=== PATIENT | male | born 1990 | race Caucasian/White ===

== ENCOUNTER 2024-07-09 09:35 | Emergency (ER) | payer OTHER, SELFPAY ==
[2024-07-09] VITALS (17 sets, daily range): BP systolic 122–152; BP diastolic 55–84; PULSE 52–70; RESP 12–22; TEMP 36.4–36.5; O2SAT 97–100; BMI 32.1
--- NOTE | 2024-07-09 09:49 | ED.GENADULT ---
HPI - General Adult General Chief complaint: Trauma Stated complaint: Fell off ladder Left wrist pain / arm pain Time Seen by Provider: 07/09/24 09:48 Source: patient, RN notes reviewed and old records reviewed Mode of arrival: Ambulatory Limitations: no limitations History of Present Illness HPI narrative: 34-year-old male with no reported medical issues who presents with fall with from a ladder. Patient had his hips at about a 1 story level, had a ladder that he states was on slight at the base of was little bit wet and he did not realize how slippery was not slipped out from underneath him and he fell down onto his feet and falling onto his left side. Patient states his feet landed on slight but he fell sideways has had sort of landed soft dirt/flower bed. His main complaint is pain in his lower back. As well as his left wrist. Patient states no loss of consciousness, denies feeling standard dizzy. Denies headache denies neck pain, states while she was low back pain is worse with movement. States he was able to stand and has been able to ambulate. Has a little bit of pain in his left hip but states he is able to ambulate on it. Also notes a little bit of calf pain. Denies seal pain or foot pain. Denies any chest pain or shortness of breath. States he did get the wind knocked out of him. Denies any abdominal or flank pain. Had some nausea initially but none persistently. No vomiting. No loss of bowel or bladder control no other GI or urinary symptoms. Patient states he called for help and was assisted. Was driven here by private auto. States no daily medications, denies prior surgeries. No known drug allergies. No regular tobacco, occasional alcohol states none today, no recreational drugs other than marijuana. Noted that is pulses bradycardic he states that that is his baseline. He states he did drink a bottle of water and take some Aleve on the way over here. He defers anything for pain currently. Related Data Previous Rx's Medication Instructions Recorded tramadol 50 mg tablet 50 mg PO Q6H PRN pain #14 tabs 07/09/24 Allergies Allergy/AdvReac Type Severity Reaction Status Date / Time No Known Drug Allergies Allergy Verified 07/09/24 09:46 Review of Systems Review of Systems ROS Unobtainable: All systems reviewed & are unremarkable except as noted in HPI and below Patient History Social History Smoking Status: Unknown if ever smoked Exam Narrative Exam Narrative: GEN: C-collar in ED. Patient appears in mild distress. HEAD: No evidence of trauma, no raccoon/Hinojosa sign. Patient does have dirt left side face but is not imbedded, no erythema rash or ecchymosis. NECK: Nontender, painless range of motion, trachea midline Negative Nexus criteria, midline line tenderness, distracting injury, altered mental status, neuro deficit, recent EtOH. EYES: PERRLA, EOMI ENT: External inspection normal, trachea is midline, TM's are normal no hemotypanum, Nares are clear, no septal hematoma, no dental or oral injury, airway is normal and with normal occlusion, No bony tenderness RESP: Chest is nontender and has symmetric movement, no ecchymosis, breath sounds are normal no crackles, wheezes or rales CVS: Patient was bradycardic but heart sounds are normal, no murmur noted, No JVD. ABG/GI: Nontender, soft, normal bowel sounds, no distention, no organomegaly, pelvic rock is negative NEURO: Oriented AOx3, neuro is grossly intact, sensation and motor is normal all 4 extremities moving, cranial nerves II through XII are intact, GCS is 15 PSYCH: Normal mood and affect SKIN: Intact, warm and dry, no crepitus and without decubitus BACK: No CVA tenderness, no vertebral tenderness except for some mild tenderness over L3-4 5 region, no step-off's, no crepitus EXT: Left wrist is tender, patient has slightly decreased range of motion, no obvious ecchymosis swelling or deformity, patient has some tenderness over the left hip but has good range of motion without any other pain. Right hip is nontender, mild tenderness of the left calf, no obvious deformity, no bony tenderness. No tenderness of the feet, heels or toes. No pedal edema, normal color and temperature, normal range of motion of extremities with normal tendon exam, 2+ pulses in all four extremities Initial Vital Signs Initial Vital Signs: Vital Signs Temperature 97.7 F 07/09/24 09:36 Pulse Rate 58 L 07/09/24 09:36 Respiratory Rate 17 07/09/24 09:36 Blood Pressure 133/84 07/09/24 09:36 Pulse Oximetry 97 07/09/24 09:36 Oxygen Delivery Method Room Air 07/09/24 09:36 Course Orders Ordered: ED Orders 07/09/24 09:59 CT cervical spine wo con Stat CT head/brain wo con Stat CT lumbar spine wo con Stat XR chest 1V Stat XR pelvis 1-2V Stat EKG-12 Lead Stat 07/09/24 10:01 XR tibia fibula LT 2V Stat 07/09/24 10:04 Complete Blood Count AUTO DIFF Stat Comprehensive Metabolic Panel Stat Ethanol (ETOH) Stat Lactate (Lactic Acid) Stat Lipase Stat PTT Partial Thromboplastin Kit Stat Prothrombin Time INR Stat 07/09/24 10:55 Type and Screen Stat 07/09/24 11:44 XR wrist LT min 3V Stat Discontinued Medications Sodium Chloride (Normal Saline 0.9%) 1,000 mls @ 1,000 mls/hr IV BOLUS ONE Stop: 07/09/24 11:53 Last Infusion: 07/09/24 12:27 Dose: Infused Documented By: Admin: 07/09/24 11:03 Dose: 1,000 mls/hr Documented By: SADAF Vital Signs Vital signs: Vital Signs - 8 hr 07/09/24 09:36 07/09/24 09:41 07/09/24 09:41 Temperature 97.7 F Temperature [0936] Pulse Rate 58 L 59 L Pulse Rate [0936] Respiratory Rate 17 Respiratory Rate [0936] Blood Pressure 133/84 133/84 Blood Pressure [0936] Pulse Oximetry 97 98 Pulse Oximetry [0936] Oxygen Delivery Method Room Air Oxygen Delivery Method [935] 07/09/24 09:45 07/09/24 09:45 07/09/24 09:59 Temperature Temperature [0936] 97.6 F Pulse Rate 52 L Pulse Rate [0936] 58 L Respiratory Rate Respiratory Rate [0936] 17 Blood Pressure 122/71 Blood Pressure [0936] 133/84 Pulse Oximetry 97 Pulse Oximetry [0936] 97 Oxygen Delivery Method Oxygen Delivery Method [0936] Room Air 07/09/24 10:00 07/09/24 10:00 07/09/24 10:01 Temperature Temperature [0936] Pulse Rate 52 L 54 L Pulse Rate [0936] Respiratory Rate Respiratory Rate [0936] Blood Pressure 137/76 Blood Pressure [0936] Pulse Oximetry 98 97 Pulse Oximetry [0936] Oxygen Delivery Method Oxygen Delivery Method [0936] 07/09/24 10:01 07/09/24 10:31 07/09/24 10:33 Temperature Temperature [0936] Pulse Rate 60 Pulse Rate [0936] Respiratory Rate Respiratory Rate [0936] Blood Pressure 147/77 H 128/58 L Blood Pressure [0936] Pulse Oximetry 100 Pulse Oximetry [0936] Oxygen Delivery Method Oxygen Delivery Method [0936] 07/09/24 10:33 07/09/24 10:45 07/09/24 10:45 Temperature Temperature [0936] Pulse Rate 58 L 60 Pulse Rate [0936] Respiratory Rate 14 13 Respiratory Rate [0936] Blood Pressure 129/73 Blood Pressure [0936] Pulse Oximetry 99 100 Pulse Oximetry [0936] Oxygen Delivery Method Oxygen Delivery Method [0936] 07/09/24 11:00 07/09/24 11:00 07/09/24 11:15 Temperature Temperature [0936] Pulse Rate 62 Pulse Rate [0936] Respiratory Rate 14 Respiratory Rate [0936] Blood Pressure 133/80 136/79 Blood Pressure [0936] Pulse Oximetry 100 Pulse Oximetry [0936] Oxygen Delivery Method Oxygen Delivery Method [0936] 07/09/24 11:15 07/09/24 11:30 07/09/24 11:30 Temperature Temperature [0936] Pulse Rate 60 65 Pulse Rate [0936] Respiratory Rate 16 20 Respiratory Rate [0936] Blood Pressure 136/65 Blood Pressure [0936] Pulse Oximetry 100 100 Pulse Oximetry [0936] Oxygen Delivery Method Oxygen Delivery Method [0936] 07/09/24 11:46 07/09/24 11:46 07/09/24 12:00 Temperature Temperature [0936] Pulse Rate 66 69 Pulse Rate [0936] Respiratory Rate 21 19 Respiratory Rate [0936] Blood Pressure 152/80 H Blood Pressure [0936] Pulse Oximetry 100 99 Pulse Oximetry [0936] Oxygen Delivery Method Oxygen Delivery Method [0936] 07/09/24 12:01 07/09/24 12:01 07/09/24 12:15 Temperature Temperature [0936] Pulse Rate 70 Pulse Rate [0936] Respiratory Rate 12 Respiratory Rate [0936] Blood Pressure 140/74 146/66 H Blood Pressure [0936] Pulse Oximetry 99 Pulse Oximetry [0936] Oxygen Delivery Method Oxygen Delivery Method [0936] 07/09/24 12:15 07/09/24 12:30 07/09/24 12:30 Temperature Temperature [0936] Pulse Rate 69 65 Pulse Rate [0936] Respiratory Rate 22 12 Respiratory Rate [0936] Blood Pressure 133/55 L Blood Pressure [0936] Pulse Oximetry 100 100 Pulse Oximetry [0936] Oxygen Delivery Method Room Air Oxygen Delivery Method [0936] Medical Decision Making Lab Data 07/09/24 10:04 07/09/24 10:04 Labs: Lab Results 07/09/24 07/09/24 07/09/24 Range/Units 10:04 10:55 12:06 WBC 8.8 (4.5-11.0) X10^3/uL RBC 4.65 (4.5-5.9) X10^6/uL Hgb 13.6 (13.5-17.5) g/dL Hct 39.7 L (41-53) % MCV 85.4 (80-100) fL MCH 29.2 (26-34) PG MCHC 34.2 (30-36) % RDW 13.6 (11.6-14.8) % Plt Count 321 (150-400) X10^3/uL Neut % (Auto) 44.8 L (50-75) % Lymph % (Auto) 46.4 H (25-40) % Crane % (Auto) 7.5 (3-14) % Eos % (Auto) 1.1 L (2-4) % Baso % (Auto) 0.2 (0-2) % Neut # (Auto) 3900 (0935-3608) /uL Lymph # (Auto) 4100 (2912-6751) /uL Crane # (Auto) 700 (0-900) /uL Eos # (Auto) 100 (0-450) /uL Baso # (Auto) 0 (0-100) /uL PT 12.6 H (9.4-12.5) SECONDS INR 1.1 (0.9-1.3) APTT 32 (25.1-36.5) SECONDS Sodium 135 L (137-145) mmol/L Potassium 4.4 (3.4-5.1) mmol/L Chloride 102 (98-107) mmol/L Carbon Dioxide 24 (22-32) mmol/L BUN 20 (9-20) mg/dL Creatinine 0.86 (0.66-1.25) mg/dL Estimated GFR > 60 (>60) mL/min BUN/Creatinine Ratio 23.3 H (6-22) Glucose 152 H (70-100) mg/dL Lactate 2.5 H 2.8 H (0.7-2.1) mmol/L Calcium 9.0 (8.4-10.2) mg/dL Total Bilirubin 0.8 (0.2-1.3) mg/dL AST 57 (17-59) IU/L ALT 38 (<50) IU/L Alkaline Phosphatase 94 (38-126) U/L Total Protein 7.9 (6.3-8.2) g/dL Albumin 4.5 (3.5-5.0) g/dL Globulin 3.4 (1.7-4.1) g/dL Albumin/Globulin Ratio 1.3 (1.0-2.8) Lipase 77 (23-300) U/L Ethyl Alcohol < 10 ( - 10) mg/dL Blood Type O Negative Antibody Screen Negative ECG Data Attestation: I personally reviewed and interpreted this ECG as follows: Prior ECG tracings: not available for review Interpretation: Sinus bradycardia with sinus arrhythmia rate of 57 MD 162 QRS of 100 QTC 377, no ST changes. No priors available. MDM Narrative Medical decision making narrative: 34-year-old male fell from height of his hips being about 1 story when a ladder slid out fell onto his feet and then off to his left side. No heel pain has a little bit of tib-fib pain but has been able to ambulate. Notes lower lumbar pain and left wrist pain is main complaints. He is bradycardic but states that is his baseline. Vitals are otherwise appropriate no hypotension. No hypoxia. Labs white count 8.8 hemoglobin of 13.6 platelets of 321, predominance of lymphocytes. Coags are negative, lactate 2.5. CMP shows sodium 135 potassium 4.4 chloride of 102, CO2 of 24 BUN 20 creatinine 0.86, lactate 2.5 glucose is 152, LFTs are negative. Lipase is 77. ETOH is negative EKG shows sinus bradycardia. Head CT negative for acute change C-spine CT no acute fracture or traumatic subluxation. Lumbar CT acute mild superior endplate compression fracture T12 without bony retropulsion or canal stenosis no other acute bony abnormalities congenitally short L5 pedicles incidentally noted multilevel mild disc bulges without canal stenosis. Chest x-ray low lung volumes, no acute change. Pelvis no acute radiographic change. Tib-fib no acute fracture. Left wrist fracture comminuted fracture distal radial metaphysis pad this is the intra-articular extension fracture lines mild dorsal angulation and fracture fragments on lateral image. Moderate diffuse circumferential soft tissue swelling. CT maybe useful for further evaluation. Patient has T12 compression fracture. No other acute fractures or changes lactate was slightly elevated, did elevate slightly but completing fluids still. No changes in vitals patient otherwise feels well. Vitals have over been appropriate. Patient does have left wrist fracture as well as a T12 compression fracture. This is over the area of discomfort. Patient has no other acute neurologic changes felt appropriate for discharge home given referral for Orthopedic surgery. [address] Mckeon, orthopedic surgery: spoke with Dr. Mckeon 1331: Plan for follow up in the office. T12 compression fracture but no retropulsion or neurologic changes. Reviewed specific findings from imaging including wrist x-ray. Patient placed in volar splint neurovascularly intact and to follow up with the office. Agrees with plan. Discharge Plan Departure Patient Disposition: Home Clinical Impression: Compression fracture of T12 vertebra, Fracture of left wrist Instructions: Vertebral Compression Fracture, DI for Wrist Fracture Activity Restrictions/Additional Instructions: You have a small compression fracture at T12 in your lower back. These are typically treated with conservative management but if persisting or worsening you can follow up with Orthopedic surgery, contact is included below. Your imaging also shows some area of the will likely bulge of the discs in your back. You also fracture of your left wrist you do need to follow up with Orthopedic surgery for this. Contacts included below. Please call today or tomorrow to set up follow up in the next week. Splint Care: Keep splint clean and dry. Elevated affected body part to decrease swelling. OK to use ice pack on the affected body part. Use for 15-20 minutes each time, for 5-6x per day. If you develop worsening pain, numbness, tingling, discoloration of the affected body part, loosen the splint by loosening the JACK wrap, and either see your doctor for an urgent re-assessment, or return to the Emergency Department. Return to the Emergency Department for any new or worsening symptoms. You can take Tylenol up to a 1000 mg every 6 hours and/or ibuprofen up to 600 mg every 6 hours as needed for pain. You take tramadol 1-2 tablets every 6 hours as needed for pain. This medication can make you sleepy do not drive, perform hazardous activities or make any major decisions while taking it. This medication will make you constipated please take a stool softener once to twice daily until stools are soft and regular. Prescription sent to [facility]. Please return for severe headaches, rapidly worsening back pain, new chest pain or shortness of breath, persistent vomiting, loss of bowel or bladder control new weakness numbness or loss of sensation in your extremities or other new or concerning changes. Prescriptions: New tramadol 50 mg tablet 50 mg PO Q6H PRN (Reason: pain) Qty: 14 0RF Referrals: Isidro Mckeon MD [Physician] - Stand Alone Forms: Patient Portal/API, Work Release Note
--- NOTE | 2024-07-09 09:59 | EKG_ITS ---
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
--- NOTE | 2024-07-09 09:59 | DI.RAD.S_ITS ---
PROCEDURE: XR CHEST 1V INDICATIONS: fall from 1 story, pain low back, L wrist. TECHNIQUE: One view of the chest was acquired. COMPARISON: None. FINDINGS: Surgical changes and devices: None. Lungs and pleura: Low lung volumes. No dense consolidation or pleural effusion. Mediastinum: Normal heart size Bones and chest wall: Unremarkable IMPRESSION: Low lung volumes. No acute radiographic abnormality on this limited single view study. If there is high concern for occult injury, consider repeat radiography or cross-sectional imaging. Dictated by: Cornel Hameed M.D. on 07/09/2024 at 10:35 Approved by: Cornel Hameed M.D. on 07/09/2024 at 10:36
--- NOTE | 2024-07-09 09:59 | DI.RAD.S_ITS ---
PROCEDURE: XR PELVIS 1-2V INDICATIONS: fall from 1 story, pain low back TECHNIQUE: 1 view(s) of the pelvis acquired. COMPARISON: None. FINDINGS: Bones: No pelvic ring disruption or acute displaced fracture/dislocation. Soft tissues: No suspicious calcifications IMPRESSION: No acute radiographic abnormality. If there is high concern for occult injury, consider repeat radiography or cross-sectional imaging. Dictated by: Cornel Hameed M.D. on 07/09/2024 at 10:47 Approved by: Cornel Hameed M.D. on 07/09/2024 at 10:48
--- NOTE | 2024-07-09 09:59 | DI.CT.S_ITS ---
PROCEDURE: CT HEAD/BRAIN WO CON INDICATIONS: Trauma TECHNIQUE: Noncontrast 4.5 mm thick angled axial sections acquired from the foramen magnum to the vertex, with coronal and sagittal reformats. For radiation dose reduction, the following was used: automated exposure control, adjustment of mA and/or kV according to patient size. COMPARISON: None. FINDINGS: Image quality: Diagnostic. CSF spaces: Basal cisterns are patent. No extra-axial fluid collections. Ventricles are normal in size and shape. Brain: No midline shift. No intracranial masses or hemorrhage. Toribio-white matter interface is normal. Skull and face: Calvarium and visualized facial bones are intact, without suspicious lesions. Sinuses: Visualized sinuses and mastoids are clear. IMPRESSION: No acute intracranial pathology. Dictated by: Cruzito Santos M.D. on 07/09/2024 at 10:37 Approved by: Cruzito Santos M.D. on 07/09/2024 at 10:37
--- NOTE | 2024-07-09 09:59 | DI.CT.S_ITS ---
PROCEDURE: CT LUMBAR SPINE WO CON INDICATIONS: fall from 1 story on to feet/Lside/low back/wrist pain TECHNIQUE: Noncontrast 3 mm thick sections acquired from the T12 level to the sacrum. Sagittal and coronal reformats were constructed. For radiation dose reduction, the following was used: automated exposure control. COMPARISON: None. FINDINGS: Image quality: Excellent. Bones: There is normal bony alignment. Acute mild superior endplate compression fracture of T12. No other compression fractures. No bony retropulsion. L5 pedicles are congenitally short. No canal stenosis or foraminal stenosis. Disc bulges at L3-L4, L4-L5, and L5-S1. No suspicious lytic or blastic bony lesions. No pars defects. Soft tissues: No retroperitoneal masses or hematomas. Visualized aorta is normal in caliber. IMPRESSION: 1. Acute mild superior endplate compression fracture of T12 without bony retropulsion or canal stenosis. 2. No other acute bony abnormalities. 3. Congenitally short L5 pedicles incidentally noted. 4. Multilevel mild disc bulges without canal stenosis. Dictated by: Cruzito Santos M.D. on 07/09/2024 at 10:37 Approved by: Cruzito Santos M.D. on 07/09/2024 at 10:40
--- NOTE | 2024-07-09 09:59 | DI.CT.S_ITS ---
PROCEDURE: CT CERVICAL SPINE WO CON INDICATIONS: Trauma TECHNIQUE: Noncontrast 3 mm thick sections acquired from the skull base to the T4 level. Sagittal and coronal reformats were then constructed. For radiation dose reduction, the following was used: automated exposure control, adjustment of mA and/or kV according to patient size. COMPARISON: None. FINDINGS: Image quality: Excellent. Bones: No fractures or dislocations. Visualized superior ribs are intact. Soft tissues: Prevertebral soft tissues are normal in thickness. No paravertebral hematomas. No apical pneumothoraces. IMPRESSION: No cervical fracture or traumatic subluxation. Dictated by: Cruzito Santos M.D. on 07/09/2024 at 10:35 Approved by: Cruzito Santos M.D. on 07/09/2024 at 10:36
--- NOTE | 2024-07-09 10:01 | DI.RAD.S_ITS ---
PROCEDURE: XR TIBIA FIBULA LT 2V INDICATIONS: left/calf pain TECHNIQUE: 2 views of the tibia and fibula were acquired. COMPARISON: None. FINDINGS: Bones: No acute displaced fracture or dislocation. Soft tissues: No suspicious calcifications IMPRESSION: No acute displaced fracture of the tibial shaft or fibular shaft. If there is high concern for occult injury, consider repeat radiography or cross-sectional imaging. Dictated by: Cornel Hameed M.D. on 07/09/2024 at 10:46 Approved by: Cornel Hameed M.D. on 07/09/2024 at 10:47
[2024-07-09 10:15] LABS: Add Manual Diff / Slide Review NO; Basophils Absolute Auto 0 /uL (0-100); Basophils Percent Auto 0.2 % (0-2); Eosinophils Absolute Auto 100 /uL (0-450); Eosinophils Percent Auto 1.1 % (2-4); Hematocrit 39.7 % (41-53); Hemoglobin 13.6 g/dL (13.5-17.5); Lymphocytes Absolute Auto 4100 /uL (1100-4500); Lymphocytes Percent Auto 46.4 % (25-40); Mean Corpuscular HGB Conc 34.2 % (30-36); Mean Corpuscular Hemoglobin 29.2 PG (26-34); Mean Corpuscular Volume 85.4 fL (80-100); Monocytes Absolute Auto 700 /uL (0-900); Monocytes Percent Auto 7.5 % (3-14); Neutrophils Absolute Auto 3900 /uL (1500-7000); Neutrophils Percent Auto 44.8 % (50-75); Platelet Count 321 X10^3/uL (150-400); Red Blood Cell Count 4.65 X10^6/uL (4.5-5.9); Red Cell Distribution Width 13.6 % (11.6-14.8); White Blood Cell Count 8.8 X10^3/uL (4.5-11.0)
[2024-07-09 10:21] LABS: INR 1.1 (0.9-1.3); Prothrombin Time 12.6 SECONDS (9.4-12.5)
[2024-07-09 10:24] LABS: PTT Partial Thromboplastin Tim 32 SECONDS (25.1-36.5)
[2024-07-09 10:26] LABS: Lactate (Lactic Acid) 2.5 mmol/L (0.7-2.1)
[2024-07-09 10:28] LABS: Alanine Aminotransferase 38 IU/L (<50); Albumin 4.5 g/dL (3.5-5.0); Albumin Globulin Ratio 1.3 (1.0-2.8); Alkaline Phosphatase 94 U/L (38-126); Aspartate Aminotransferase 57 IU/L (17-59); BUN Creatinine Ratio 23.3 (6-22); Bilirubin Total 0.8 mg/dL (0.2-1.3); Blood Urea Nitrogen 20 mg/dL (9-20); Carbon Dioxide 24 mmol/L (22-32); Chloride 102 mmol/L (98-107); Estimated Glomerular Filt Rate > 60 mL/min (>60); Ethanol (ETOH) < 10 mg/dL; Globulin 3.4 g/dL (1.7-4.1); Glucose 152 mg/dL (70-100); Lipase 77 U/L (23-300); Sodium 135 mmol/L (137-145); Total Protein 7.9 g/dL (6.3-8.2)
[2024-07-09 10:35] LABS: HEMOLYSIS 147 (0-50)
[2024-07-09 10:36] LABS: Potassium 4.4 mmol/L (3.4-5.1)
[2024-07-09] MEDS: SODIUM CHLORIDE 0.9% 1,000 ML 1000 ML IV (11:03)
--- NOTE | 2024-07-09 11:44 | DI.RAD.S_ITS ---
PROCEDURE: XR WRIST LT Four views INDICATIONS: left wrist pain TECHNIQUE: Four views of the wrist were acquired. COMPARISON: None. FINDINGS / IMPRESSION: Comminuted fracture of the left distal radius metaphysis, epiphysis with intra-articular extension of the fracture lines. Mild dorsal angulation of the fracture fragments on the lateral image. Associated moderate diffuse circumferential soft tissue swelling. CT may be useful for further evaluation. Follow-up is needed. Dictated by: Ky Lang M.D. on 07/09/2024 at 12:08 Approved by: Ky Lang M.D. on 07/09/2024 at 12:11
[2024-07-09 11:45] LABS: Reflexed Lactate in 2 Hours Y
[2024-07-09 12:24] LABS: Lactate 2HR (Lactic Acid Rflx) 2.8 mmol/L (0.7-2.1)
== END 2024-07-09 12:57 | disposition home or self-care (01) ==
PROVIDERS: Emergency Provider Emergency Medicine
DX: S22.089A Unspecified fracture of T11-T12 vertebra, initial encounter for closed fracture (principal); S52.502A Unspecified fracture of the lower end of left radius, initial encounter for closed fracture; M25.552 Pain in left hip; M79.605 Pain in left leg; S09.90XA Unspecified injury of head, initial encounter; R00.1 Bradycardia, unspecified; I49.8 Other specified cardiac arrhythmias; W11.XXXA Fall on and from ladder, initial encounter
CPT/HCPCS: 29125; 36415; 70450; 71045; 72125; 72131; 72170; 73110; 73590; 80053; 80320; 83605; 83690; 85025; 85610; 85730; 86850; 86900; 86901; 93005; 96360; 99284

== ENCOUNTER 2024-07-17 10:59 | Day surgery (SDC) | payer OTHER, SELFPAY ==
[2024-07-16 13:40] VITALS: BMI 34.2
[2024-07-17 11:38] VITALS: BP 133/99; PULSE 60; RESP 18; TEMP 36.9; O2SAT 100; BMI 34.8
[2024-07-17] MEDS: ACETAMINOPHEN IV 1,000 MG/100 ML VIAL 400 MG IV (11:55)
[2024-07-17] MEDS: LACTATED RINGERS 1,000 ML 42 ML IV ×2 (11:56→16:19)
--- NOTE | 2024-07-17 12:56 | PM.PREOP ---
Pre-operative Note Interval Note History & Physical reviewed/Exam performed by Physician: Yes Changes to H&P: No
--- NOTE | 2024-07-17 13:22 | SUR.PREOP ---
Block start time [1312] . Timeout completed. Monitoring initiated and maintained throughout procedure. Oxygen and medications given per anesthesiologist instructions. Patient remained stable throughout procedure, no adverse reactions noted. Block end time [1319].
[2024-07-17] MEDS: CEFAZOLIN 2 GM/100 ML PREMIX 100 ML IV (13:41)
--- NOTE | 2024-07-17 13:58 | SUR.OPER ---
Supine on padded OR bed, head on pillow, arms secured on padded arm boards at <90 degrees abduction, left arm on padded hand table draped free , legs uncrossed, safety belt at thigh, tape over blanket over lower legs.
[2024-07-17] MEDS: BUPIVACAINE 0.25% (PF) 30 ML, EPINEPHrine 0.15 MG INJ (14:06)
[2024-07-17 14:58] VITALS: BP 164/94; PULSE 91; RESP 16; TEMP 36.6; O2SAT 98
--- NOTE | 2024-07-17 15:01 | P.OP_ITS ---
Operative Date/Time/Diagnoses Date of procedure: 07/17/24 Time of procedure: 13:50 Pre-op diagnosis: Left intra-articular distal radius fracture Post-op diagnosis: same Procedure & Clinicians Procedure: Open reduction internal fixation of a left intra-articular distal radius fracture Same procedure as scheduled: Yes Indications: Displaced intra-articular left distal radius fracture Surgeon: Isidro Mckeon Click Yes if Unassisted: Yes Anesthesia Type: General and Peripheral nerve block Operative Notes Findings: Displaced intra-articular fracture with a punch type fracture as well with d epression of the articular surface. Closure Type: primary Applied: implant(s) (Arthrex distal radius plate) Estimated Blood Loss (mL): 5 Tourniquet time (min): 58 Procedure in detail: On date of service, patient was met in the holding area where the operative site was signed and witnessed by the OR staff. The surgery was once again discussed with the patient and any remaining questions or concerns were answered to the patient's full satisfaction. Time-out was performed verifying patient's name procedure and operative site. Patient was taken back to the operating theater and placed on the operating table in a supine position. Great care was taken to ensure that all bony prominences were appropriately padded. Well-padded tourniquet was placed up along the upper extremity. Another time-out was performed verifying patient's name, procedure, and operative site. The left upper extremity was then prepped and draped in the normal sterile fashion. Esmarch was used to exsanguinate the limb and the tourniquet was turned up to 250 mm of mercury. Fifteen blade was used to expose the distal radius. An incision was made over the FCR tendons. The FCR tendon was retracted and the floor of the tendon was opened with a 15 blade. The FPL tendon and muscle belly was retracted ulnarly giving us good visualization of the pronator quadratus. The pronator quadratus was excised off the distal radius using the 15 blade and then finished with a p eriosteal elevator. Next the brachia radialis attachment to the radial styloid was released to help with overall reduction. Retractors were placed allowing us good visualization of the distal radius as well as the shaft. Patient had a vertical split in the distal radius. We are able to get a [place] in that vertical split and used the [place] to tamp up the displaced punch articular fragment lining it back up with the articular surface. This was done under mini C-arm guidance allowing us to visually watched the articular surface get reduced back into place. A reduction maneuver was performed and a K-wire was placed holding a provisional reduction of the intra-articular distal radius fracture. C-arm was brought in to verify overall reduction. Once we were satisfied with the overall reduction, a plate was placed and held provisionally with K-wires. C-arm was once again used to verify plate positioning as well as reduction. The plate was then fixated to the distal fragment using locking screws. Lateral C-arm views were used to verify that the screws were not intra-articular or broaching the dorsal cortex. At this point we are able to use the plate to help fine tune the overall reduction. Once we were satisfied with the overall reduction the plate was then secured to the shaft with a combination of locking and nonlocking screws. Final x-rays were obtained. The wound was copiously irrigated and closed in a layered fashion. The wrist and hand were cleaned dried dressed. Patient was placed into a splint and taken to the PACU in stable condition. Complications: none Post-operative Condition: stable Disposition: PACU Plan for aftercare: Patient will follow our postoperative protocol for open reduction internal fixation distal radius
[2024-07-17 15:05] VITALS: BP 153/91; PULSE 80; RESP 15; O2SAT 98
[2024-07-17 15:09] VITALS: BP 169/102; PULSE 70; RESP 11; O2SAT 98
[2024-07-17 15:15] VITALS: BP 165/104; PULSE 90; RESP 10; O2SAT 98
[2024-07-17 15:20] VITALS: BP 164/104; PULSE 67; RESP 10; TEMP 36.3; O2SAT 98
[2024-07-17] MEDS: OXYCODONE IR 5 MG TABLET PO (15:37)
== END 2024-07-17 15:50 | disposition home or self-care (01) ==
PROVIDERS: Referring Provider Orthopaedic Surgery; Visit Provider Orthopaedic Surgery
PROC: (CPT 25608; principal; 2024-07-17 13:15)
DX: S52.572A Other intraarticular fracture of lower end of left radius, initial encounter for closed fracture (principal); G89.18 Other acute postprocedural pain; W11.XXXA Fall on and from ladder, initial encounter
CPT/HCPCS: 25608; 64450; C1713; J0136; J0171; J0330; J0690; J1170; J2250; J2405; J2704; J3010